=== PATIENT | female | born 1955 | race Asian ===

== ENCOUNTER 2018-11-11 11:08 | Inpatient (IN) | payer MEDICAID, OTHER | END 2018-11-12 15:30 | disposition home or self-care (01) | LOC: ER 11:08 → TELE 11:09 → TELE-WESTW 15:13 | DX: M94.0 Chondrocostal junction syndrome [Tietze] (principal); I24.9 Acute ischemic heart disease, unspecified; G62.9 Polyneuropathy, unspecified; I10 Essential (primary) hypertension; M06.9 Rheumatoid arthritis, unspecified; Z95.0 Presence of cardiac pacemaker; E78.5 Hyperlipidemia, unspecified; M19.90 Unspecified osteoarthritis, unspecified site ==